=== PATIENT | male | born 1935 | race Caucasian/White ===

== ENCOUNTER 2018-03-23 10:31 | Inpatient (IN) | payer MEDICARE, MEDICAID ==
--- OUTSIDE RECORDS SUMMARY | 2018-03-23 11:00 | XMS REPORT | Continuity of Care Document ---
:1935 External Reference #:[id number] Author Name AdrianAlberto spencert Care Team Providers Name Role Phone Clarissa Hickman MD Primary Care Physician Unavailable Payers Type Date Identification Numbers Payment Provider Subscriber Policy Number: [id number] Medicare Brayden Lindquist PayID: [id number] [address] [place] [address] Policy Number: [id number] Medicaid Brayden Lindquist Group Name: 1 1 [address] PayID: [id number] [place] [address] Advance Directives Description No Information Available Problems Date Description Provider Status Onset: 01/11/2017 Hyperlipidemia Donell Mcrae NP Active Onset: 01/11/2017 Essential hypertension Donell Mcrae NP Active Onset: 01/11/2017 Depressive disorder Donell Mcrae NP Active Onset: 01/21/2018 Edema Aung Chu M.D. Active Onset: 01/21/2018 Peripheral vascular disease Aung Chu M.D. Active Family History Date Family Member(s) Problem(s) Comments General Non contributory General no tb Social History Type Date Description Comments Sex Unknown Marital Status Lives With Family ETOH Use Denies alcohol use Tobacco Use Start: Unknown Patient has never smoked Smoking Status Reviewed: 03/09/18 Patient has never smoked Exercise Type/Frequency Exercises sporadically Allergies, Adverse Reactions, Alerts Description No Known Drug Allergies Medications Medication Date Status Form Strength Qnty SIG Indications Ordering Provider Oseltamivir 03/09/ Hx Capsules 75mg 10caps one J09.x3 Donell Phosphate 2019 - capsule DIEGO Mcrae 03/14/ twice 2019 daily for 5 days. Amlodipine 04/18/ Active Tablets 5mg 45tabs 1 1/2 I10 Donell Besylate 2018 tablets by Thor, DIEGO mouth every day Blood Pressure 02/21/ Active Misc 1units check bp I10 Donell Monitor Auto 2018 twice Thor, [place] Inflate weekly at home Rosuvastatin / Active Tablets 20mg 90tabs take one Donell Calcium 0000 tablet by Thor, DIEGO mouth every day Multi Vitamin / Active Tablets 1 by mouth Unknown Daily 0000 every day Amlodipine 04/18/ Hx Tablets 10mg 1 by mouth I10 Donell Besylate 2018 - every day DIEGO Mcrae 2017 Amlodipine 01/02/ Hx Tablets 5mg 30tabs 1 by mouth I10 Donell Besylate 2017 - every day DIEGO Mcrae 2017 Escitalopram 01/02/ Hx Tablets 10mg 30tabs 1/2 tab F32.89 Donell Oxalate 2016 - once daily DIEGO Mcrae 02/17/ for 1 week 2017 then increase to 1 tab daily. No Active 10/11/ Hx Unknown Medications 2013 - 2013 Levaquin 10/11/ Hx Tablets 500mg 21tabs 1 by mouth 601.0 Eber D. 2013 - every day Ashlie 02/17/ M.Noa 2017 Naproxen / Hx Tablets 500mg 1 tablet Unknown 0000 - with food 10/10/ by mouth 2013 twice a day prn pain Metoprolol / Hx Tablets ER 25mg Take One Unknown Succinate ER 0000 - 24HR Tablet By 01/02/ Mouth 2016 Every Day Immunizations Description No Information Available Vital Signs Date Vital Result Comment 03/09/2018 10:03am Height 68 inches 5'8" Weight 218.00 lb Heart Rate 96 /min BP Systolic Sitting 125 mmHg BP Diastolic Sitting 66 mmHg Body Temperature 100.3 F Pain Level 5 headache/abdominal tenderness O2 % BldC Oximetry 95 % BMI (Body Mass Index) 33.1 kg/m2 01/21/2018 7:16am Height 68 inches 5'8" Weight 218.00 lb Heart Rate 56 /min BP Systolic Sitting 122 mmHg Lue lg cuff BP Diastolic Sitting 60 mmHg Lue lg cuff Respiratory Rate 16 /min BMI (Body Mass Index) 33.1 kg/m2 12/12/2017 3:42pm Height 68 inches 5'8" Weight 213.00 lb Heart Rate 72 /min BP Systolic 141 mmHg BP Diastolic 73 mmHg O2 % BldC Oximetry 93 % BMI (Body Mass Index) 32.4 kg/m2 05/26/2017 4:15pm Weight 211.75 lb Heart Rate 91 /min BP Systolic 136 mmHg BP Diastolic 68 mmHg Body Temperature 97.2 F O2 % BldC Oximetry 91 % 04/18/2017 9:57am Weight 212.50 lb Heart Rate 87 /min BP Systolic Sitting 158 mmHg BP Diastolic Sitting 78 mmHg O2 % BldC Oximetry 92 % 02/21/2017 10:45am Height 68 inches 5'8" Weight 211.00 lb Heart Rate 76 /min BP Systolic Sitting 132 mmHg BP Diastolic Sitting 76 mmHg Body Temperature 97.5 F O2 % BldC Oximetry 96 % BMI (Body Mass Index) 32.1 kg/m2 01/02/2017 10:50am Height 68 inches 5'8" Weight 209.00 lb Heart Rate 79 /min BP Systolic Sitting 146 mmHg BP Diastolic Sitting 72 mmHg Body Temperature 97.9 F O2 % BldC Oximetry 96 % BMI (Body Mass Index) 31.8 kg/m2 10/11/2013 2:12pm Weight 178.00 lb Heart Rate 99 /min BP Systolic 120 mmHg BP Diastolic 62 mmHg Respiratory Rate 14 /min Body Temperature 98.5 F Results Test Date Facility Test Result H/L Range Note Laboratory test 03/09/2018 [facility] Influenza A/B Positive finding Rapid Laboratory test 12/15/2017 [facility] B-Type 25 pg/mL [address] [place] [address] Peptide BNP [phone] CBC Auto Diff 12/15/2017 [facility] White Blood 4.8 10^3/uL N 3.5-10.[address] [place] [address] [phone] Red Blood Count 5.06 10^6/uL N 4.00-5.40 Hemoglobin 15.7 g/dL N 14.0-18.0 Hematocrit 46 % N 42-52 Mean Corpuscular Volume 90 fL N 80-94 Mean Corpuscular Hemoglobin 31 pg N 27-31 Mean Corpuscular HGB Conc 34 g/dL N 31-36 Red Cell Distribution Width 13 % N 10.5-15 Platelet Count 180 10^3/uL N 150-450 Mean Platelet Volume 7.9 um3 N 7.4-10.4 Abs Neutrophils 2.9 10^3/uL N 1.5-7.7 Abs Lymphocytes 1.4 10^3/uL N 1.0-4.8 Abs Monocytes 0.3 10^3/uL N 0-0.8 Abs Eosinophils 0.1 10^3/uL N 0-0.6 Abs Basophils 0 10^3/uL N 0-0.2 Abs Nucleated RBC 0 10^3/uL Granulocyte % 61.2 % N 38-83 Lymphocyte % 28.5 % N 25-47 Monocyte % 7.1 % High 0-7 Eosinophil % 2.7 % N 0-6 Basophil % 0.5 % N 0-2 Nucleated Red Blood Cells % 0.3 Comp Metabolic Panel 12/15/2017 [facility] Sodium 138 mmol/L N 135-[address] [place] [address] [phone] Potassium 4.1 mmol/L N 3.5-5.0 Chloride 104 mmol/L N 101-111 Co2 Carbon Dioxide 26 mmol/L N 22-32 Anion Gap 8 mmol/L N 2-11 Glucose 106 mg/dL High 70-100 Blood Urea Nitrogen 14 mg/dL N 6-24 Creatinine 0.97 mg/dL N 0.67-1.17 BUN/Creatinine Ratio 14.4 N 8-20 Calcium 9.4 mg/dL N 8.6-10.3 Total Protein 6.9 g/dL N 6.4-8.9 Albumin 4.4 g/dL N 3.2-5.2 Globulin 2.5 g/dL N 2-4 Albumin/Globulin Ratio 1.8 N 1-3 Total Bilirubin 0.90 mg/dL N 0.2-1.0 Alkaline Phosphatase 58 U/L N 34-104 Alt 15 U/L N 7-52 Ast 16 U/L N 13-39 Egfr Non- 74.3 >60 Egfr 89.9 >60 2 Laboratory test 12/15/2017 [facility] C Reactive 1.40 mg/L N < 8.[address] [place] [address] [phone] Erythrocyte Sed Rate 7 mm/Hr N 0-40 TSH (Thyroid Stim Horm) 3.12 mcIU/mL N 0.34-5.60 Lipid Profile 04/11/2017 [facility] Triglycerides 69 mg/dL 3 (Trig/Chol/HDL) [address] [place] [address] [phone] Cholesterol 143 mg/dL 4 HDL Cholesterol 44.6 mg/dL 5 LDL Cholesterol 85 mg/dL 6 Comp Metabolic Panel 04/11/2017 [facility] Sodium 138 mmol/L N 133-145 [address] [place] [address] [phone] Potassium 3.9 mmol/L N 3.5-5.0 Chloride 105 mmol/L N 101-111 Co2 Carbon Dioxide 27 mmol/L N 22-32 Anion Gap 6 mmol/L N 2-11 Glucose 100 mg/dL N 70-100 Blood Urea Nitrogen 19 mg/dL N 6-24 Creatinine 0.94 mg/dL N 0.67-1.17 BUN/Creatinine Ratio 20.2 High 8-20 Calcium 9.6 mg/dL N 8.6-10.3 Total Protein 7.0 g/dL N 6.4-8.9 Albumin 4.5 g/dL N 3.2-5.2 Globulin 2.5 g/dL N 2-4 Albumin/Globulin Ratio 1.8 N 1-3 Total Bilirubin 1.00 mg/dL N 0.2-1.0 Alkaline Phosphatase 56 U/L N 34-104 Alt 16 U/L N 7-52 Ast 17 U/L N 13-39 Egfr Non- 77.2 >60 Egfr 99.3 >60 7 1 >100 to <200 pg/mL: likely compensated congestive heart failure (CHF) 200 to 400 pg/mL: likely moderate CHF >400 pg/mL: likely moderate to severe CHF 2 Because ethnic data is not always readily available, this report includes an eGFR for both -Americans and non- Americans. The National Kidney Disease Education Program (NKDEP) does not endorse the use of the MDRD equation for patients that are not between the ages of 18 and 70, are , have extremes of body size, muscle mass, or nutritional status, or are non- or non-. According to the National Kidney Foundation, irrespective of diagnosis, the stage of the disease is based on the level of kidney function: Stage Description GFR(mL/min/1.73 m(2)) 1 Kidney damage with normal or decreased GFR 90 2 Kidney damage with mild decrease in GFR 60-89 3 Moderate decrease in GFR 30-59 4 Severe decrease in GFR 15-29 5 Kidney failure <15 (or dialysis) 3 Desirable: <150 Borderline High: 150-199 High: 200-499 Very High: >500 4 Desirable: <200 Borderline High: 200-239 High: >239 5 Low: <40 Desirable: 40-60 High: >60 6 Desirable: <100 Near Optimal: 100-129 Borderline High: 130-159 High: 160-189 Very High: >189 7 Because ethnic data is not always readily available, this report includes an eGFR for both -Americans and non- Americans. The National Kidney Disease Education Program (NKDEP) does not endorse the use of the MDRD equation for patients that are not between the ages of 18 and 70, are , have extremes of body size, muscle mass, or nutritional status, or are non- or non-. According to the National Kidney Foundation, irrespective of diagnosis, the stage of the disease is based on the level of kidney function: Stage Description GFR(mL/min/1.73 m(2)) 1 Kidney damage with normal or decreased GFR 90 2 Kidney damage with mild decrease in GFR 60-89 3 Moderate decrease in GFR 30-59 4 Severe decrease in GFR 15-29 5 Kidney failure <15 (or dialysis) Procedures Description No Information Available Encounters Type Date Location Provider Dx Diagnosis Office Visit 01/21/2018 [facility] Aung Chu, I73.9 Peripheral vascular 7:30a [facility] disease, unspecified R60.0 Localized edema Office Visit 12/12/2017 3:40p [facility] Donell Thor, I10 Essential ( primary) Medicine - [place] hypertension [place] R60.0 Localized edema R20.2 Paresthesia of skin H91.90 Unspecified hearing loss, unspecified ear Office Visit 05/26/2017 4:00p [facility] Donell Thor, I10 Essential ( primary) Medicine - [place] hypertension [place] Office Visit 04/18/2017 9:40a [facility] Donellcr Mcrae, I10 Essential ( primary) Medicine - [place] hypertension [place] Office Visit 02/21/2017 10:20a [facility] Donell Mcrae, I10 Essential ( primary) Medicine - [place] hypertension [place] F32.89 Other specified depressive episodes E78.5 Hyperlipidemia, unspecified Office Visit 01/02/2017 11:00a [facility] Donell Mcrae, F32.89 Other specified Medicine - [place] depressive [place] episodes I10 Essential (primary) hypertension E78.5 Hyperlipidemia, unspecified Office Visit 10/11/2013 2:00p [facility] Eber Latham 601.0 Prostatitis Acute Infectious Collin Dailey Diseases Plan of Treatment Future Appointment(s):06/12/2018 3:40 pm - Donell Mcrae [place] at [facility] - Hihwjhkki54/21/2019 - Donell Mcrae, NPR50.9 Fever, unspecifiedComments: You can continue taking the Tylenol every 6 hours.Continue drinking plenty of fluids and eat as tolerated.J09.x3 Influenza due to identified novel influenza A virus with gasVeronaw Medication:Oseltamivir Phosphate 75 mg - one capsule twice daily for 5 days.Comments:Start the Tamiflu, one tablet twice daily.Rest as much as possible.If your symptoms worsen or persist more than 7 days please let me know.
--- NOTE | 2018-03-23 11:36 | ED ---
HPI Febrile Illness - HPI Summary HPI Summary: A 82 y/o male accompanied by family presents to the ED c/o fever reaching 102 - 103 F. In the ED room, the patient has a pulse of 79 BPM, O2 saturation of 94%, respiratory of 16, and blood pressure of 119/79. According to the patient's family, he was diagnosed with influenza A in the middle of February and he was prescribed some medication which he finished by the end of February. The patient was fine for a couple days, and it was noted that he was normal. However, the patient stated experiencing sudden spike in temperature reaching 102 - 103 F. The patient has been experiencing this fever for the past 3 days. The patient denies any cough, diarrhea, CP, SOB, rhinorrhea, post-nasal drip, leg pain, photophobia, neck pain, but does have a headache. The patient noted that when he has the flu, he never exhibits any of the flu symptoms except the fever. They went to where an XR was done which revealed no pneumonia. Patient was referred to [facility] for further evaluation. - History of Current Complaint Chief Complaint: EDFever Time Seen by Provider: 03/23/18 10:42 Hx Obtained From: Patient Onset/Duration: Started Days Ago, Still Present Timing: Constant Initial Severity: Mild Current Severity: Mild Pain Intensity: 3 Pain Scale Used: 0-10 Numeric Aggravating Factors: Nothing Alleviating Factors: Nothing Associated Signs and Symptoms: Negative - Allergy/Home Medications Allergies/Adverse Reactions: Allergies Allergy/AdvReac Type Severity Reaction Status Date / Time No Known Allergies Allergy Verified 03/23/18 10:38 Home Medications: Home Medications Rosuvastatin (NF) [Crestor] 20 mg PO DAILY 03/23/18 [History Confirmed 03/23/18] amLODIPine TAB* [Norvasc 5 mg TAB*] 7.5 mg PO DAILY 03/23/18 [History Confirmed 03/23/18] PMH/Surg Hx/FS Hx/Imm Hx Endocrine/Hematology History: Reports: Hx Diabetes Cardiovascular History: Reports: Hx Hypertension - Surgical History Surgery Procedure, Year, and Place: finger amputation. hernia repair Infectious Disease History: No Infectious Disease History: Denies: Traveled Outside the [place] in Last 30 Days - Family History Known Family History: Negative: Diabetes - Social History Alcohol Use: None Substance Use Type: Reports: None Hx Tobacco Use: No Smoking Status (MU): Never Smoked Tobacco Review of Systems Positive: Fever Negative: Photophobia Negative: Nasal Discharge Negative: Chest Pain Negative: Shortness Of Breath, Cough Negative: Diarrhea Positive: Other - NEGATIVE: LEG PAIN, NECK PAIN Positive: Headache All Other Systems Reviewed And Are Negative: Yes Physical Exam - Summary Physical Exam Summary: VITAL SIGNS: Reviewed. GENERAL: Patient is a well-developed and nourished male who is lying comfortable in the stretcher. Patient is not in any acute respiratory distress. HEAD AND FACE: No signs of trauma. No ecchymosis, hematomas or skull depressions. No sinus tenderness. EYES: PERRLA, EOMI x 2, No injected conjunctiva, no nystagmus. EARS: Hearing grossly intact. Ear canals and tympanic membranes are within normal limits. MOUTH: Oropharynx within normal limits. NECK: Supple, trachea is midline, no adenopathy, no JVD, no carotid bruit, no c- spine tenderness, neck with full ROM. Patient is moving neck, no meningeal signs. CHEST: Symmetric, no tenderness at palpation LUNGS: Clear to auscultation bilaterally. No wheezing or crackles. CVS: Regular rate and rhythm, S1 and S2 present, no murmurs or gallops appreciated. ABDOMEN: Soft, non-tender. No signs of distention. No rebound no guarding, and no masses palpated. Bowel sounds are normal. EXTREMITIES: FROM in all major joints, no edema, no cyanosis or clubbing. NEURO: Alert and oriented x 3. No acute neurological deficits. Speech is normal and follows commands. SKIN: Dry and warm Triage Information Reviewed: Yes Vital Signs On Initial Exam: Initial Vitals Temp Pulse Resp BP Pulse Ox 100.3 F 87 18 128/80 93 03/23/18 10:33 03/23/18 10:33 03/23/18 10:33 03/23/18 10:33 03/23/18 10:33 Vital Signs Reviewed: Yes Diagnostics - Vital Signs Vital Signs Temp Pulse Resp BP Pulse Ox 03/23/18 10:56 98.8 F 03/23/18 10:54 77 16 119/79 94 03/23/18 10:53 80 94 03/23/18 10:33 100.3 F 87 18 128/80 93 - Laboratory Result Diagrams: 03/23/18 11:41 03/23/18 11:41 Lab Statement: Any lab studies that have been ordered have been reviewed, and results considered in the medical decision making process. - Radiology CXR AT Radiology Interpretation Completed By: Radiologist Summary of Radiographic Findings: No evidence for acute intrathoracic disease. ED PHYSICIAN REVIEWED THIS RADIOLOGY REPORT. - EKG 1107 Cardiac Rate: NL - 78 BPM EKG Rhythm: Sinus Rhythm - 78 BPM Summary of EKG Findings: NO ST ELEVATIONS. Course/Dx - Course Assessment/Plan: A 82 y/o male accompanied by family presents to the ED c/o fever reaching 102 - 103 F. In the ED room, the patient has a pulse of 79 BPM, O2 saturation of 94%, respiratory of 16, and blood pressure of 119/79. According to the patient's family, he was diagnosed with influenza A in the middle of February and he was prescribed some medication which he finished by the end of February. The patient was fine for a couple days, and it was noted that he was normal. However, the patient stated experiencing sudden spike in temperature reaching 102 - 103 F. The patient has been experiencing this fever for the past 3 days. The patient denies any cough, diarrhea, CP, SOB, rhinorrhea , post-nasal drip, leg pain, photophobia, neck pain, but does have a headache. The patient noted that when he has the flu, he never exhibits any of the flu symptoms except the fever. They went to where an XR was done which revealed no pneumonia. Patient was referred to [facility] for further evaluation. Blood work without any significant abnormality except for KEYONA is 43, fibrinogen is 471 , leukocytes 112, AAST is 11, troponin is 0.06 however the patient does not complaining of any chest pain or shortness of breath. He reported mild weakness. The CRP is 44.71. Chest x-ray done on the urgent care shows no acute pathology. Influenza A and B is negative. This point we are waiting for the urinalysis however because of the increase in troponin the patient was given an aspirin at this point and he reports that he continues to be chest pain -free. I discussed my physical exam and findings with Dr. Doran from the hospital services and he accepted the patient for admission. At this point the patient is hemodynamically stable alert and oriented 3. Urinalysis positive for UTI. The patient was given Rocephin from Dr. Doran. - Diagnoses Provider Diagnoses: Fever, Elevated troponin, UTI (urinary tract infection) - Provider Notifications Discussed Care Of Patient With: Larry Doran Time Discussed With Above Provider: 13:22 Instructed by Provider To: Other - ACCEPTS PATIENT FOR ADMISSION Discharge - Sign-Out/Discharge Documenting (check all that apply): Patient Departure - ADMIT, Sign-Out Patient - STALLONE Signing out patient TO: Larry Doran Receiving patient FROM: Maulik Murphy Patient Received Moderate/Deep Sedation with Procedure: No - Discharge Plan Condition: Stable Disposition: ADMITTED TO [facility] - Billing Disposition and Condition Condition: STABLE Disposition: Admitted to [facility] - Attestation Statements Document Initiated by Pattyibosiel: Yes Documenting Scribe: Noel Carney Provider For Whom Odalys is Documenting (Include Credential): Maulik Murphy MD Scribe Attestation: Noel Sweeney, scribed for Maulik Murphy MD on 03/24/18 at 2150. Scribe Documentation Reviewed: Yes Provider Attestation: The documentation as recorded by the Noel mosquera accurately reflects the service I personally performed and the decisions made by Maulik morris MD Status of Scribe Document: Viewed
[2018-03-23 11:58] LABS: ABS Basophils 0 10^3/ul (0-0.2); ABS Eosinophils 0 10^3/ul (0-0.6); ABS Lymphocytes 1.1 10^3/ul (1.0-4.8); ABS Monocytes 0.7 10^3/ul (0-0.8); ABS Neutrophils 7.5 10^3/ul (1.5-7.7); ABS Nucleated RBC 0 10^3/ul; Eosinophil % 0.4 %; Hematocrit 43 % (42-52); Hemoglobin 14.3 g/dl (14.0-18.0); Lymphocyte % 11.5 %; Mean Corpuscular HGB Conc 34 g/dl (31-36); Mean Corpuscular Hemoglobin 30 pg (27-31); Mean Corpuscular Volume 90 fL (80-94); Nucleated Red Blood Cells % 0; Platelet Count 249 10^3/ul (150-450); Red Blood Count 4.76 10^6/ul (4.00-5.40); Red Cell Distribution Width 12 % (10.5-15); White Blood Count 9.3 10^3/ul (3.5-10.8)
[2018-03-23 12:07] LABS: Fibrinogen 471.1 mg/dL (110.8-404.3)
[2018-03-23 12:11] LABS: Influenza A Molecular NEGATIVE (Negative); Influenza B Molecular NEGATIVE (Negative)
[2018-03-23 12:23] LABS: Troponin I 0.06 ng/mL (<0.04)
[2018-03-23] MEDS ORDERED: Aspirin 81 mg CHEW TAB* 81 MG TAB.CHEW PO ONE (12:26)
[2018-03-23 12:42] LABS: Albumin 4.2 g/dL (3.2-5.2); Albumin/Globulin Ratio 1.4 (1-3); BUN/Creatinine Ratio 15.2 (8-20); C Reactive Protein 44.71 mg/L (<8.01); Calcium 9.2 mg/dL (8.6-10.3); EGFR African American 76.1 (>60); EGFR Non-African American 62.9 (>60); Globulin 2.9 g/dL (2-4); Potassium 4.1 mmol/L (3.5-5.0); Total Bilirubin 0.9 mg/dL (0.2-1.0); Total Protein 7.1 g/dL (6.4-8.9)
[2018-03-23 13:23] LABS: Erythrocyte Sed Rate 43 mm/Hr (0-40)
[2018-03-23] MEDS ORDERED: Morphine VIAL* 4 MG/ML VIAL (1 ml vial) IV PRN (13:44)
[2018-03-23] MEDS ORDERED: Ondansetron INJ* 2 MG/ML VIAL IV PRN (13:44)
[2018-03-23 14:59] LABS: Urine Appearance Turbid; Urine Bacteria Absent (Absent); Urine Bilirubin Negative (Negative); Urine Blood 1+ (Negative); Urine Color Yellow; Urine Glucose Negative (Negative); Urine Ketones Negative (Negative); Urine Nitrite Positive (Negative); Urine Protein 1+(30 mg/dL) (Negative); Urine Red Blood Cell 3+(>10/hpf) (Absent); Urine Specific Gravity 1.014 (1.010-1.030); Urine Urobilinogen Negative (Negative); Urine White Blood Cell 3+(>20/hpf) (Absent)
[2018-03-23] MEDS: cefTRIAXone VIAL(*) 1,000 MG in NS 0.9% 50 ML* 50 ML IVPB SCH (17:15)
[2018-03-23] MEDS: Heparin VIAL(*) 5000 UNITS/ML VIAL (FIVE THOUSAND) SUBCUT SCH ×2 (17:15→22:06)
[2018-03-23] MEDS: Azithromycin IV(*) 500 MG in NS 0.9% 250 ML* 250 ML IVPB SCH (17:43)
[2018-03-23] MEDS ORDERED: Ciprofloxacin TAB* 500 MG PO ONE (18:34)
--- NOTE | 2018-03-23 20:00 | HP ---
CC: JAMES Vee * HISTORY AND PHYSICAL: DATE OF ADMISSION: 03/23/18 TIME OF MY EVALUATION: 3 p.m. PRIMARY CARE PROVIDER: JAMES Vee, [facility]. CHIEF COMPLAINT: Fever/malaise/weakness. HISTORY OF PRESENT ILLNESS: Mr. Lindquist is a pleasant Cymraes-speaking only 82- year-old man, accompanied by his daughter, who is translating for him, who presents complaining of a fever that reached 102 to 103 degrees Fahrenheit at home. The patient is otherwise asymptomatic. He was recently diagnosed with influenza A in the middle of February and he was prescribed Tamiflu between 03/09/18 and 03/16/18, which he completed in a compliant fashion. The patient was fine for a few days, and then he started noticing sudden increases in temperature reaching 102 to 103 degrees Fahrenheit. The patient has had ongoing fever for the past few days. He denies any pulmonary symptoms, diarrhea , chest pain, or shortness of breath. The patient has got no cellulitis, neck pain, but does have an occasional headache. The patient had a chest x-ray done at Urgent Care, which revealed no pneumonia and was transferred to the hospital for further evaluation. A urinalysis was grossly abnormal and the working diagnosis with a point of referral for admission was urinary tract infection. The patient was also covered for pulmonary pathogens out of the possibility for a secondary pulmonary infection following influenza. PAST MEDICAL HISTORY: 1. Hypertension. 2. Hyperlipidemia. 3. History of right finger amputation (second digit). 4. History of hernia repair. 5. No travel outside the . OUTPATIENT MEDICATIONS: 1. Rosuvastatin/Crestor 20 mg by mouth daily. 2. Amlodipine 7.5 mg by mouth daily. ALLERGIES: No known drug allergies. FAMILY HISTORY: Reviewed, but noncontributory in this particular situation. SOCIAL HISTORY: The patient is retired. He is Cymraes-speaking only. He is accompanied by his daughter. He is a nonsmoker. REVIEW OF SYSTEMS: A review of 14 systems was accomplished at the bedside. This was largely negative except for the pertinent positives mentioned above in the HPI and past medical history. PHYSICAL EXAMINATION On admission: GENERAL APPEARANCE: Well-developed, well-nourished man, in no apparent distress , lying in the ED gurney. 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 VITAL SIGNS: Temperature 100.3 degrees Fahrenheit, [place] [facility] [place], 102.5 at home; pulse 80; respirations 18; 128/80; pulse ox 93% on room air. HEENT: Normocephalic, atraumatic. Mucous membranes are moist. No posterior pharyngeal erythema or exudate. Eyes: Extraocular muscles are intact. Pupils are equal, round, and reactive to light and accommodation. NECK: Supple. No elevated JVD. Midline trachea. Normal thyroid. No carotid bruits. CHEST: Clear breath sounds anteriorly and posteriorly. HEART: Regular rate and rhythm. Normal S1, normal S2. ABDOMEN: Soft and nontender, but distended consistent with previous as per daughter. EXTREMITIES: Without clubbing, cyanosis, or edema. Finger amputation on the right hand noted. No palpable cords. Homans' sign negative. NEURO: No focal sensory, motor, or proprioception component deficiencies. PSYCH: Normal affect. Difficult to interpret directly secondary to language barrier. LYMPH: No adenopathy appreciated at the cervical or inguinal areas. SKIN: Dry and intact. No rashes, lesions, or breakdown. DIAGNOSTIC STUDIES/LAB DATA: Admission data: White blood cell count 9.3, hemoglobin 14.3, platelets 249. Fibrinogen (acute phase reactant) elevated at 47.1, PTT preserved at 29. Chemistries generally unremarkable. He had an initial troponin that was 0.06, but repeated at 0 (suspect initial value erroneous). Electrolytes are entirely normal. Glucose was marginally elevated at 112 (nonfasting); lactic acid was 0.7 (normal), repeated at 0.8; calcium 9.2. Total bilirubin normal; AST and ALT were 11 and 12, respectively; alk phos normal. Total CK normal. Total protein and albumin were preserved. Urine was grossly abnormal with 1+ protein on dip, 1+ blood on dip, urine nitrite positive on dip, and by microscopy 3+ white blood cells and 3+ red blood cells with 3+ positive leukocyte esterase on dip (altogether consistent with an infection). Serologies were negative for influenza A and influenza B. Chest x-ray done in the urgent care center was negative for pulmonary parenchymal disease or intrathoracic pathology. EKG unremarkable with respect to ST and T-wave morphology, no evidence of ischemia. IMPRESSION AND PLAN: Mr. Lindquist is an 82-year-old gentleman likely with a complicated urinary tract infection (given he is male) and this would explain his ongoing fevers in the absence of clear pulmonary symptoms. An alternate explanation would be a subclinical secondary bacterial infection following influenza. For this reason, he has been started on antibiotic therapy ( initially ceftriaxone/azithromycin, but with an additional dose of Cipro in light of his urinary tract infection). The patient will be placed on observation overnight. If he defervesce with respect to his fever and maintains his hydration status, he can be discharged home tomorrow on an antibiotic course. We will continue his outpatient medications for now. Full code. TIME SPENT: Total time taken to admit Mr. Lindquist was 65 minutes, greater than half that time was spent at the bedside collecting the history and physical , which was prolonged secondary to his language barrier. [id number]/[facility] #: [id number] CHARLEE
[2018-03-23] MEDS: Acetaminophen TAB* 325 MG PO PRN (20:07)
[2018-03-24] MEDS: Heparin VIAL(*) 5000 UNITS/ML VIAL (FIVE THOUSAND) SUBCUT SCH ×3 (06:14→21:12)
[2018-03-24] MEDS: Acetaminophen TAB* 325 MG PO PRN ×2 (08:10→18:29)
[2018-03-24] MEDS: amLODIPine TAB* 5 MG PO SCH (08:10)
[2018-03-24] MEDS: Atorvastatin* 40 MG TAB PO SCH (08:10)
[2018-03-24] MEDS: Azithromycin IV(*) 500 MG in NS 0.9% 250 ML* 250 ML IVPB SCH (16:22)
[2018-03-24] MEDS: cefTRIAXone VIAL(*) 1,000 MG in NS 0.9% 50 ML* 50 ML IVPB SCH (16:59)
[2018-03-24] MEDS ORDERED: Ciprofloxacin TAB* 500 MG PO ONE (18:22)
--- NOTE | 2018-03-24 18:28 | PN ---
Subjective Date of Service: 03/24/18 Interval History: . Interviewed and examined patient at bedside; Reviewed recent lab results; + fever overnight. Feels very weak - family wants patient to stay - patient himself feels he is not ready for dc. Urine culture + for E. Coli...on antibiotics and receiving tylenol for antipyretic effect. . Family History: Unchanged from Admission Social History: Unchanged from Admission Past Medical History: Unchanged from Admission Objective Active Medications: . Acetaminophen (Tylenol Tab*) 650 mg PO Q6H PRN PRN Reason: FEVER/PAIN Last Admin: 03/24/18 08:10 Dose: 650 mg Amlodipine Besylate (Norvasc Tab*) 7.5 mg PO DAILY [facility] Last Admin: 03/24/18 08:10 Dose: 7.5 mg Atorvastatin Calcium (Lipitor*) 40 mg PO DAILY [facility] Last Admin: 03/24/18 08:10 Dose: 40 mg Heparin Sodium (Porcine) (Heparin Vial(*)) 5,000 units SUBCUT Q8HR [facility] Last Admin: 03/24/18 14:27 Dose: 5,000 units Ceftriaxone Sodium 1,000 mg/ (Sodium Chloride) 50 mls @ 200 mls/hr IVPB Q24H [facility] Last Admin: 03/24/18 16:59 Dose: 200 mls/hr Azithromycin 500 mg/ Sodium (Chloride) 250 mls @ 250 mls/hr IVPB Q24H [facility] Last Admin: 03/24/18 16:22 Dose: 250 mls/hr Morphine Sulfate (Morphine Vial*) 2 mg IV Q4H PRN PRN Reason: PAIN - MILD Ondansetron HCl (Zofran Inj*) 4 mg IV Q4H PRN PRN Reason: NAUSEA/VOMITING Vital Signs - 8 hr 03/24/18 03/24/18 11:51 15:38 Temperature 97.3 F 100.3 F Pulse Rate 70 83 Respiratory 20 18 Rate Blood Pressure 119/64 130/70 (mmHg) O2 Sat by Pulse 94 96 Oximetry Oxygen Devices in Use Now: None Appearance: elderly, frail, NAD. Eyes: No Scleral Icterus Ears/Nose/Mouth/Throat: Clear Oropharnyx Neck: Trachea Midline Respiratory: Symmetrical Chest Expansion and Respiratory Effort Cardiovascular: NL Sounds; No Murmurs; No JVD Abdominal: NL Sounds; No Tenderness; No Distention Lymphatic: No Cervical Adenopathy Extremities: No Edema Skin: No Rash or Ulcers Neurological: Alert and Oriented x 3 Lines/Tubes/Other Access: Clean, Dry and Intact Peripheral IV Nutrition: Taking PO's Result Diagrams: 03/23/18 11:41 03/23/18 11:41 Microbiology and Other Data: Microbiology 03/23/18 13:54 Aerobic Blood Culture - Preliminary Blood Venous No Growth Day 1 Anaerobic Blood Culture - Preliminary No Growth Day 1 03/23/18 13:24 Urine Culture - Preliminary Urine Escherichia Coli 03/23/18 11:41 Aerobic Blood Culture - Preliminary Blood Venous No Growth Day 1 Anaerobic Blood Culture - Preliminary No Growth Day 1 03/23/18 11:08 Influenza Types A,B Antigen - Final Nasal Specimen received for Influenza A/B Molecular testing Assess/Plan/Problems-Billing Assessment: 82 yo man with acute cystitis and possibly also a bacterial bronchitis following recent influenza A pneumonia. Now with high fevers and dehydration (fevers > 102 F) weakness and confusion noted; improved with IVF, antibiotics and antipyretics. Since he could not return home safely, patient was admitted. (noted ongoing fevers and weakness last evening). . - Patient Problems (1) Cystitis Current Visit: Yes Status: Acute Priority: High Code(s): N30.90 - CYSTITIS , UNSPECIFIED WITHOUT HEMATURIA Comment: - U culture shows E. Coli - sensitivities pending. - IVF - Ciprofloxacin - Ceftriaxone (also covers pulmonary infection) - Encourage ambulation; encourage oral intake. (2) Pneumonia Current Visit: Yes Status: Acute Priority: High Code(s): J18.9 - PNEUMONIA , UNSPECIFIED ORGANISM Comment: - Ceftriaxome/azithromycin - awaiting E. Coli (urine) sensitivities to perhaps d/c cipro. - + mild cough, but no sputum. - BCX NGTD. (3) Hypertension Current Visit: Yes Status: Chronic Priority: Medium Code(s): I10 - ESSENTIAL (PRIMARY) HYPERTENSION Comment: - Amlodipine (4) Hypercholesteremia Current Visit: Yes Status: Chronic Priority: Medium Code(s): E78.00 - PURE HYPERCHOLESTEROLEMIA, UNSPECIFIED Comment: - Heather
[2018-03-25] MEDS: Heparin VIAL(*) 5000 UNITS/ML VIAL (FIVE THOUSAND) SUBCUT SCH (05:34)
[2018-03-25 05:54] LABS: ABS Basophils 0 10^3/ul (0-0.2); ABS Eosinophils 0 10^3/ul (0-0.6); ABS Monocytes 0.8 10^3/ul (0-0.8); ABS Nucleated RBC 0 10^3/ul; Eosinophil % 0.8 %; Hematocrit 39 % (42-52); Hemoglobin 13.5 g/dl (14.0-18.0); Lymphocyte % 17.9 %; Mean Corpuscular HGB Conc 35 g/dl (31-36); Mean Corpuscular Hemoglobin 31 pg (27-31); Mean Corpuscular Volume 89 fL (80-94); Mean Platelet Volume 7.6 fL (7.4-10.4); Nucleated Red Blood Cells % 0; Platelet Count 232 10^3/ul (150-450); Red Blood Count 4.43 10^6/ul (4.00-5.40); Red Cell Distribution Width 12 % (10.5-15); White Blood Count 5.9 10^3/ul (3.5-10.8)
[2018-03-25 06:08] LABS: BUN/Creatinine Ratio 16.5 (8-20); Calcium 8.6 mg/dL (8.6-10.3); EGFR African American 89.9 (>60); EGFR Non-African American 74.3 (>60); Magnesium 2.1 mg/dL (1.9-2.7); Potassium 3.9 mmol/L (3.5-5.0)
[2018-03-25] MEDS: amLODIPine TAB* 5 MG PO SCH (08:34)
[2018-03-25] MEDS: Atorvastatin* 40 MG TAB PO SCH (08:34)
[2018-03-25 12:01] VITALS: BP 141/67
--- NOTE | 2018-03-25 13:07 | DS ---
CC: Donell Mcrae NP * DISCHARGE SUMMARY: DATE OF ADMISSION: 03/23/18 DATE OF DISCHARGE: 03/25/18 PRIMARY CARE PROVIDER: Donell Mcrae NP DISCHARGE DIAGNOSIS: Acute Escherichia coli cystitis/urinary tract infection. SECONDARY DIAGNOSES: 1. History of recent influenza diagnosis and treatment. 2. History of hypertension. 3. Hyperlipidemia. 4. Status post right second finger amputation. 5. Hernia repair. MEDICATIONS AT DISCHARGE: Include: 1. Rosuvastatin 20 mg daily. 2. Amlodipine 7.5 mg daily. 3. Cefdinir 300 mg b.i.d. for a total of 4 days, then stop. LABORATORY DATA AND STUDIES PERFORMED DURING THE HOSPITAL STAY: Included on 08/05, white blood cell count 5.9, hemoglobin 13.5, hematocrit 39, and platelets of 232. Sodium 134, potassium 3.9, chloride 104, carbon dioxide 25, BUN 16, creatinine 0.97. Troponin's were negative throughout the hospital stay. Although the initial troponin on admission was 0.06, troponins afterwards were 0. Microbiology studies showed over 100,000 colonies of E. coli. There was intermediate susceptibility to Augmentin and resistant to ampicillin and sensitive to tetracyclines, cephalosporins, fluoroquinolones, and Bactrim. Influenza testing was negative during the hospital stay. Blood cultures were negative. HOSPITALIZATION COURSE: Brayden Lindquist is an 82-year-old male who is primarily [place] Leonean-speaking only, who presented to the hospital complaining of fever, malaise, and feeling unwell. He was noted to have abnormal urinalysis with urine cultures positive for E. coli. The patient was febrile up to 101.3 degrees noted on 03/24/18. Gradually during the hospital stay, he felt stronger. He continued to be treated with broad-spectrum antibiotics and his urine cultures were positive for E. coli and his antibiotics were narrowed only to third generation cephalosporin. On the day of discharge, patient feels better and he is going to be discharged home. Recommendations to follow up with Donell Mcrae NP, in 4 to 7 days after discharge. PHYSICAL EXAM: At time of discharge, blood pressure 108/68, heart rate of 73 and regular, respiratory rate 19, oxygen saturation 96% on room air, temperature 98.2. General: The patient is a very pleasant 82-year-old male who is in no acute distress, alert, awake, and oriented x3. HEENT: Head: Atraumatic, normocephalic. Eyes: Pupils are equal, reactive to light and accommodation. Oropharynx is clear. Mucosa moist. Neck: Supple. No JVD. No bruits bilaterally. Cardiovascular: Regular rate and rhythm. No murmur. Respiratory: Clear to auscultation bilaterally. Abdomen: Soft, nontender. Bowel sounds are present in all 4 quadrants. Extremities: There is no edema. Pulses are +2 bilaterally. No clubbing or cyanosis. On neuro evaluation, speech is clear. Cranial nerves II through XII grossly intact. Motor strength is 5/5 bilaterally. Please note that this is a short summary of the patient's hospitalization. Please refer to further medical records for details. TIME SPENT: Approximately 35 minutes was spent on the patient's discharge. [id number]/[facility] #: [id number] MTDD
== END 2018-03-25 13:35 | disposition home or self-care (01) | DRG 690 ==
LOC: ED 10:31 → MEDTELE 15:16 → OBSVTOIN 03-24 11:27
PROVIDERS: ADMIT Internal Medicine; ATTEND Internal Medicine
DX: N30.00 Acute cystitis without hematuria (principal); B96.20 Unspecified Escherichia coli [E. coli] as the cause of diseases classified elsewhere; E11.9 Type 2 diabetes mellitus without complications; I10 Essential (primary) hypertension; Z16.11 Resistance to penicillins; E86.0 Dehydration; E78.00 Pure hypercholesterolemia, unspecified; E78.5 Hyperlipidemia, unspecified; Z89.021 Acquired absence of right finger(s); R54 Age-related physical debility
CPT/HCPCS: 36415; 80048; 80053; 81003; 81015; 82550; 83605; 83735; 83880; 84484; 85025; 85384; 85652; 85730; 86140; 87040; 87077; 87086; 87186; 93005; 99284; A9270-GY; G0378; J0456; J0696; J1644

== ENCOUNTER 2020-03-05 06:50 | Inpatient (IN) ==
[2020-03-05] MEDS ORDERED: Albuterol HFA INHALER 8 gm MDI INH ONE (07:04)
[2020-03-05] MEDS ORDERED: Magnesium Sulfate IV 1GM/100ML 1 GM/100 ML BAG IV ONE (07:04)
[2020-03-05] MEDS ORDERED: NS 0.9% 1000 ml BAG 1,000 ML IV ONE (07:05)
[2020-03-05 07:34] LABS: ABS Lymphocytes 0.9 10^3/ul (1.0-4.8); ABS Monocytes 0.4 10^3/ul (0-0.8); ABS Neutrophils 2.1 10^3/ul (1.5-7.7); Hematocrit 40 % (42-52); Hemoglobin 14.2 g/dL (14.0-18.0); Lymphocyte % 25.9 %; Mean Corpuscular HGB Conc 36 g/dL (31-36); Mean Corpuscular Hemoglobin 31 pg (27-31); Mean Corpuscular Volume 87 fL (80-94); Mean Platelet Volume 7.8 fL (7.4-10.4); Platelet Count 185 10^3/uL (150-450); Red Blood Count 4.58 10^6 /uL (4.18-5.48); Red Cell Distribution Width 13 % (10-15); White Blood Count 3.4 10^3/uL (3.5-10.8)
[2020-03-05 07:52] LABS: ALT 28 U/L (7-52); Albumin 3.7 g/dL (3.2-5.2); Albumin/Globulin Ratio 1.3 (1-3); Alkaline Phosphatase 46 U/L (34-104); BUN/Creatinine Ratio 13.2 (8-20); Blood Urea Nitrogen 12 mg/dL (6-24); C Reactive Protein 46.51 mg/L (<8.01); CO2 Carbon Dioxide 22 mmol/L (22-32); Calcium 8.2 mg/dL (8.6-10.3); Chloride 98 mmol/L (101-111); EGFR African American 96.3 (>60); EGFR Non-African American 79.6 (>60); Globulin 2.8 g/dL (2-4); Glucose 111 mg/dL (70-100); Sodium 129 mmol/L (135-145); Total Protein 6.5 g/dL (6.4-8.9)
[2020-03-05 07:53] LABS: LDH 419 U/L (140-271)
[2020-03-05 07:57] LABS: Activated Partial Thrombo Time 27.4 seconds (26.0-38.0); Anion Gap 9 mmol/L (2-11); INR 1.23 (0.82-1.09); Troponin I 0.03 ng/mL (<0.03)
[2020-03-05] MEDS ORDERED: Azithromycin 500 mg/250 ml NS 500 MG/250 ML BAG IVPB ONE ×2 (08:08→08:32)
[2020-03-05] MEDS ORDERED: cefTRIAXone 1 gm/50 mL NS BAG 1 GM/50 ML BAG IV ONE (08:09)
[2020-03-05 08:12] LABS: Ferritin 398.5 ng/mL (24-336)
[2020-03-05 08:57] LABS: Potassium Redraw 3.3 mmol/L (3.5-5.0)
[2020-03-05] MEDS ORDERED: Potassium Chlor 20 meq TAB.ER PO ONE (09:18)
[2020-03-05 09:35] LABS: Urine Appearance Clear; Urine Bilirubin Negative (Negative); Urine Blood 1+ (Negative); Urine Color Straw; Urine Glucose Negative (Negative); Urine Ketones Trace (Negative); Urine Nitrite Negative (Negative); Urine Protein Negative (Negative); Urine Specific Gravity 1.003 (1.010-1.030); Urine Urobilinogen Negative (Negative)
[2020-03-05] MEDS ORDERED: Remdesivir 100 mg Vial 200 MG in NS 0.9% 250 ml 210 ML IV ONE (10:34)
[2020-03-05 10:55] LABS: Urine Bacteria Absent (Absent); Urine Red Blood Cell Trace(0-2/hpf) (Absent); Urine White Blood Cell Absent (Absent)
[2020-03-05 12:07] LABS: Troponin I 0.03 ng/mL (<0.03)
[2020-03-05] MEDS: Enoxaparin 60 MG/0.6 ML SYR SUBCUT SCH ×2 (13:15→20:13)
[2020-03-05 15:09] LABS: Troponin I 0.03 ng/mL (<0.03)
[2020-03-05 18:00] LABS: Troponin I 0.03 ng/mL (<0.03)
[2020-03-06 05:51] LABS: ABS Lymphocytes 0.7 10^3/ul (1.0-4.8); ABS Monocytes 0.4 10^3/ul (0-0.8); ABS Neutrophils 1.9 10^3/ul (1.5-7.7); Hematocrit 41 % (42-52); Hemoglobin 14.3 g/dL (14.0-18.0); Lymphocyte % 23.8 %; Mean Corpuscular HGB Conc 35 g/dL (31-36); Mean Corpuscular Hemoglobin 31 pg (27-31); Mean Corpuscular Volume 88 fL (80-94); Mean Platelet Volume 7.8 fL (7.4-10.4); Nucleated Red Blood Cells % 0.1; Platelet Count 226 10^3/uL (150-450); Red Blood Count 4.66 10^6 /uL (4.18-5.48); Red Cell Distribution Width 12 % (10-15)
[2020-03-06 06:09] LABS: Albumin 3.4 g/dL (3.2-5.2); Albumin/Globulin Ratio 1.3 (1-3); BUN/Creatinine Ratio 19.8 (8-20); Calcium 8.1 mg/dL (8.6-10.3); EGFR African American 102.8 (>60); EGFR Non-African American 84.9 (>60); Globulin 2.7 g/dL (2-4); Potassium 4.1 mmol/L (3.5-5.0); Total Bilirubin 0.6 mg/dL (0.2-1.0); Total Protein 6.1 g/dL (6.4-8.9)
[2020-03-06] MEDS: Remdesivir 100 mg Vial 100 MG in NS 0.9% 250 ml 230 ML IV SCH (09:18)
[2020-03-06] MEDS: Enoxaparin 60 MG/0.6 ML SYR SUBCUT SCH ×2 (09:18→21:43)
[2020-03-06] MEDS ORDERED: Magnesium Hydroxide LIQ 30 ML UDC PO PRN (14:47)
[2020-03-06] MEDS ORDERED: Senna TAB 8.6 mg TAB PO PRN (14:47)
[2020-03-07 07:49] LABS: ABS Lymphocytes 0.9 10^3/ul (1.0-4.8); ABS Monocytes 0.8 10^3/ul (0-0.8); ABS Neutrophils 5.2 10^3/ul (1.5-7.7); Hematocrit 43 % (42-52); Lymphocyte % 13.6 %; Mean Corpuscular HGB Conc 35 g/dL (31-36); Mean Corpuscular Hemoglobin 31 pg (27-31); Mean Corpuscular Volume 87 fL (80-94); Mean Platelet Volume 7.4 fL (7.4-10.4); Nucleated Red Blood Cells % 0.1; Platelet Count 273 10^3/uL (150-450); Red Blood Count 4.92 10^6 /uL (4.18-5.48); Red Cell Distribution Width 13 % (10-15); White Blood Count 6.9 10^3/uL (3.5-10.8)
[2020-03-07] MEDS: Enoxaparin 60 MG/0.6 ML SYR SUBCUT SCH (10:20)
[2020-03-07] MEDS: Remdesivir 100 mg Vial 100 MG in NS 0.9% 250 ml 230 ML IV SCH (10:20)
[2020-03-07 10:23] VITALS: BP 147/78
== END 2020-03-07 12:24 | disposition home or self-care (01) | DRG 177 ==
LOC: ED 06:50 → MED 06:50
PROVIDERS: ADMIT Hospitalist; ATTEND Internal Medicine

== ENCOUNTER 2023-07-08 12:03 | Observation (INO) ==
[2023-07-08] MEDS: Lactated Ringers 1000 ml BAG 1,000 ML IV ONE (12:53)
[2023-07-08 12:59] LABS: ABS Basophils 0.1 10^3/uL (0.0-0.1); ABS Lymphocytes 0.3 10^3/uL (1.0-4.8); ABS Monocytes 0.9 10^3/uL (0.0-1.1); ABS Neutrophils 14.6 10^3/uL (1.5-7.6); ABS Nucleated RBC 0.07 10^3/ul; Hemoglobin 14.9 g/dL (13.2-16.3); Lymphocyte % 1.7 %; Mean Corpuscular Hemoglobin 30.4 pg (27-33); Mean Corpuscular Hgb Conc 33.8 g/dL (31-36); Mean Corpuscular Volume 90.1 fL (80-97); Mean Platelet Volume 7.2 fL (7.5-11.2); Nucleated Red Blood Cells % 0.4 %/100WBC (0.0-0.8); Platelet Count 153 10^3/uL (150-450); Red Blood Count 4.88 10^6/uL (4.06-5.63); Red Cell Distribution Width 12.6 % (12-17); White Blood Count 15.8 10^3/uL (3.6-10.2)
[2023-07-08 13:09] LABS: Activated Partial Thrombo Time 27.4 seconds (26.0-38.0); INR 1.22 (0.83-1.13)
[2023-07-08] MEDS: cefTRIAXone 1 gm/50 mL D5W 1 GM/50 ML BAG IV ONE (13:35)
[2023-07-08 13:36] LABS: Albumin 4.4 g/dL (3.2-5.2); Albumin/Globulin Ratio 2.6 (1-3); C Reactive Protein 49.27 mg/L (<8.01); Calcium 9.2 mg/dL (8.6-10.3); Creatinine, Serum 1.03 mg/dL (0.67-1.17); Globulin 1.7 g/dL (2-4); Potassium 3.6 mmol/L (3.5-5.0); Total Bilirubin 1.6 mg/dL (0.2-1.0); Total Protein 6.1 g/dL (6.4-8.9); eGFR CKD-EPI 70.7 (>60)
[2023-07-08 13:43] LABS: Urine Appearance Turbid; Urine Bilirubin 1+ (Negative); Urine Blood Negative (Negative); Urine Glucose Negative (Negative); Urine Ketones 1+ (Negative); Urine Nitrite Negative (Negative); Urine Protein 1+ (>=30 mg/dL) (Negative); Urine Specific Gravity 1.032 (1.002-1.030); Urine Urobilinogen 1+ (Negative)
[2023-07-08 13:49] LABS: Urine Bacteria Absent /HPF (Absent); Urine Red Blood Cell 1+(3-5/hpf) /HPF (0-Trace); Urine Squamous Epithelial Cell Present /HPF (Absent); Urine White Blood Cell 1+(6-10/hpf) /HPF (0-Trace)
[2023-07-08] MEDS: Azithromycin 500 mg/250 ml NS 500 MG/250 ML BAG IVPB ONE (14:26)
[2023-07-08 14:40] LABS: Urine Color Amber
[2023-07-08 14:45] LABS: High Sensitivity Troponin 1 Hr 14 pg/mL (<20)
[2023-07-08] MEDS: Lactated Ringers 1000 ml BAG 1,000 ML IV SCH (16:34)
[2023-07-08] MEDS: Enoxaparin 40 MG/0.4 ML SYR SUBCUT SCH (18:35)
[2023-07-09 05:57] LABS: ABS Lymphocytes 0.9 10^3/uL (1.0-4.8); ABS Monocytes 0.9 10^3/uL (0.0-1.1); ABS Neutrophils 15.2 10^3/uL (1.5-7.6); ABS Nucleated RBC 0.01 10^3/ul; Eosinophil % 0.1 %; Hematocrit 39.2 % (38-53); Hemoglobin 13.5 g/dL (13.2-16.3); Lymphocyte % 5.3 %; Mean Corpuscular Hemoglobin 30.8 pg (27-33); Mean Corpuscular Hgb Conc 34.5 g/dL (31-36); Mean Corpuscular Volume 89.4 fL (80-97); Mean Platelet Volume 7.9 fL (7.5-11.2); Platelet Count 136 10^3/uL (150-450); Red Blood Count 4.39 10^6/uL (4.06-5.63); Red Cell Distribution Width 12.8 % (12-17); White Blood Count 17.2 10^3/uL (3.6-10.2)
[2023-07-09 06:38] LABS: Calcium 8.2 mg/dL (8.6-10.3); Creatinine, Serum 0.99 mg/dL (0.67-1.17); Potassium 3.8 mmol/L (3.5-5.0); eGFR CKD-EPI 74.2 (>60)
[2023-07-09] MEDS: cefTRIAXone 1 gm/50 mL D5W 1 GM/50 ML BAG IV SCH (12:20)
[2023-07-09] MEDS ORDERED: Azithromycin 500 mg/250 ml NS 500 MG/250 ML BAG IVPB SCH (14:00)
[2023-07-10 06:30] LABS: ABS Eosinophils 0.1 10^3/uL (0.0-0.5); ABS Lymphocytes 0.7 10^3/uL (1.0-4.8); ABS Monocytes 0.5 10^3/uL (0.0-1.1); ABS Neutrophils 5.6 10^3/uL (1.5-7.6); ABS Nucleated RBC 0.01 10^3/ul; Eosinophil % 0.9 %; Hemoglobin 13.4 g/dL (13.2-16.3); Lymphocyte % 10.4 %; Mean Corpuscular Hemoglobin 30.8 pg (27-33); Mean Corpuscular Hgb Conc 34.5 g/dL (31-36); Mean Corpuscular Volume 89.2 fL (80-97); Mean Platelet Volume 8.2 fL (7.5-11.2); Nucleated Red Blood Cells % 0.1 %/100WBC (0.0-0.8); Platelet Count 148 10^3/uL (150-450); Red Blood Count 4.37 10^6/uL (4.06-5.63); Red Cell Distribution Width 12.8 % (12-17)
[2023-07-10 10:31] VITALS: BP 151/74
== END 2023-07-10 12:20 | disposition home or self-care (01) ==
LOC: EDHOLD 12:03 → ED 12:03 → SUATTDRO 14:12 → MED 15:57
PROVIDERS: ADMIT Internal Medicine; ATTEND Internal Medicine